=== PATIENT | female | born 1955 | race Caucasian/White ===

== ENCOUNTER → 2016-09-29 | Day surgery (SDC) | payer OTHER ==
[~2016-09-29] MED LIST: ALBUTEROL17 GM INH; ANEXSIA 7.5/3251 TA1 PO; ASPIRIN EC81 M1 PO; FLEXERIL10 M1 PO; FLEXERIL10 MG PO; HYDROCODONE/APA1 T16 PO; LISINOPRIL20 MG PO; LOPID600 MG PO; OMEPRAZOLE40 M1 PO; PRAVASTATIN SOD40 MG PO; PRILOSEC PO; PRILOSEC20 MG PO; RANITIDINE HCL150 M1 PO; SPIRIVA18 MCG INH; TYLENOL #3 PO; VOLTAREN75 MG PO
--- NOTE | ~2016-09-29 | OR ---
Unit #: [id number] #: [id number] Patient: VELMA ESPARZA [id number] [address] [place], [place] [address] [id number] O MR#: [id number] NAME: VELMA ESPARZA. ROOM: Date of Procedure: 09/29/2016 Admission Date: 09/29/2016 Surgeon: Pedro Khan M.D. : 1955 Attending Physician: Pedro Khan M.D. Primary Care Physician: Link Hubbard Jr., A.P.R.N. OPERATIVE REPORT JOB NOTE: VERIFY DATE OF PROCEDURE PERFORMED Esophagogastroduodenoscopy with biopsy and colonoscopy with multiple snare polypectomies. INDICATIONS FOR PROCEDURE The patient with history of adenomatous polyps, also with significant dysphagia worsening symptoms. MEDICATIONS Monitored anesthesia. POSTOPERATIVE FINDINGS 1. Mild esophagitis. No clear strictures or rings were seen. 2. Mild diffuse gastritis. Biopsies taken. 3. Normal duodenum and distal duodenum. 4. Polyps x2, cecum 6 to 8 mm snared and sent for histopathology, 4 polyps in the transverse colon, 4 to 6 mm each, snared, and sent for histopathology. Prep was poor. Some areas were not well visualized. 5. Internal hemorrhoids. PLAN 1. Given the multiplicity of polyps, I would recommend a repeat colonoscopy in 3 years. PPI therapy. 2. Avoid NSAIDs. DESCRIPTION OF PROCEDURE The patient was explained of the procedure, risks, and benefits along with the risks and benefits of anesthesia. She was brought to the endoscopy room. Propofol anesthesia was given. Bite block was placed. The scope was passed down the mouth into the esophagus, stomach, duodenum, and distal duodenum. Biopsies were taken. Biopsies taken. Gently, the scope was pulled out. She tolerated it well. At this time, she was turned around and repositioned for colonoscopy. Rectal exam was done, which was normal. Colonoscope was lubricated, passed up the rectum, advanced under direct vision all the way to the cecum. Cecum was identified by ileocecal valve and appendiceal orifice. Extensive lavaging needed to be done. Multiple polyps were seen as described. I retroflexed in the rectum, small hemorrhoids seen. Gently, the scope was pulled out. She tolerated it well. Unit #: [id number] #: [id number] Patient: VELMA ESPARZA Dictated by... Douglas Flaherty/madhavi TD: 09/29/2016 21:44 JOB #: [id number] OPERATIVE REPORT X Pedro Khan MD PROCEDURE OPERATIVE NOTE
== END | disposition home or self-care (01) ==
LOC: COPS 11:35
DX: K21.0 Gastro-esophageal reflux disease with esophagitis (principal); K29.50 Unspecified chronic gastritis without bleeding; D12.0 Benign neoplasm of cecum; D12.3 Benign neoplasm of transverse colon; K64.8 Other hemorrhoids; R13.10 Dysphagia, unspecified; Z86.010 Personal history of colon polyps; K59.00 Constipation, unspecified; R73.03 Prediabetes; I10 Essential (primary) hypertension; E78.5 Hyperlipidemia, unspecified; J44.9 Chronic obstructive pulmonary disease, unspecified; J45.909 Unspecified asthma, uncomplicated; Z88.2 Allergy status to sulfonamides; Z79.82 Long term (current) use of aspirin
CPT/HCPCS: 82947; 88305; 88312; J2250

== ENCOUNTER 2016-11-14 20:48 | Emergency (ER) | payer OTHER | END 2016-11-15 01:00 | disposition home or self-care (01) | LOC: CED 20:48 | DX: Z53.21 Procedure and treatment not carried out due to patient leaving prior to being seen by health care provider (principal) ==

== ENCOUNTER 2017-01-25 19:25 | Emergency (ER) | payer OTHER ==
--- NOTE | ~2017-01-25 | US67 ---
[facility] A Service of [facility] RADIOLOGY TEXT RESULTS PATIENT: VELMA ESPARZA LOCATION: [facility] : 53 UNIT #: [id number] AGE: [address]: Keyona Morton MD SEX: F ORDER DR: [id number] [facility] [address] [place], [place] [address] [id number] E MR#: [id number] Acc #: [id number] NAME: VELMA ESPARZA. : 1955 SEX: F STUDY DATE/TIME: 01/25/2017 21:13 UNIT: ÁLVARO ROOM: STUDY DESCRIPTION: Gallbladder Attending Physician: Keyona Morton M.D. Ordering Physician: Keyona Morton M.D. Primary Care Physician: Link Hubbard Jr., A.P.R.N. MEDICAL IMAGING REPORT This report is preliminary unless electronic signature is present EXAM Gallbladder ultrasound, 01/25/2017. INDICATIONS Abdominal pain for a week. TECHNIQUE Sonographic imaging right upper quadrant was performed. COMPARISON No comparisons. FINDINGS Visualized pancreas unremarkable. Survey images of the liver are negative. The liver measures approximately 15.2 cm long axis. The right kidney is incompletely visualized but to the extent seen appears unremarkable. It measures about 9.7 cm long axis. The gallbladder is incompletely distended but otherwise unremarkable. No sonographic Haro's sign described. Extrahepatic common bile duct measures approximately 4 mm. IMPRESSION 1. Negative right upper quadrant ultrasound. Dictated by... Liborio Hull M.D. THIS IS AN ELECTRONICALLY VERIFIED REPORT Liborio Hull M.D. at 01/25/2017 11:51 PM Baldev TD: 01/25/2017 23:36 JOB #: [id number] [facility] A Service of [facility] RADIOLOGY TEXT RESULTS PATIENT: VELMA ESPARZA LOCATION: [facility] : 53 UNIT #: [id number] AGE: [address]: Keyona Morton MD SEX: F ORDER DR: MEDICAL IMAGING REPORT Page 1 of 1 COPY
--- NOTE | ~2017-01-25 | CT4 ---
[facility] A Service of [facility] RADIOLOGY TEXT RESULTS PATIENT: VELMA ESPARZA LOCATION: [facility] : 53 UNIT #: [id number] AGE: [address]: Keyona Morton MD SEX: F ORDER DR: [id number] [facility] [address] [place], [place] [address] [id number] E MR#: [id number] Acc #: [id number] NAME: VELMA ESPARZA. : 1955 SEX: F STUDY DATE/TIME: 01/25/2017 22:59 UNIT: ÁLVARO ROOM: STUDY DESCRIPTION: CT Abd and Pelv Wo Cont Attending Physician: Keyona Morton M.D. Ordering Physician: Keyona Morton M.D. Primary Care Physician: Link Hubbard Jr., A.P.R.N. MEDICAL IMAGING REPORT This report is preliminary unless electronic signature is present EXAM CT abdomen and pelvis INDICATIONS Right-sided abdominal pain. Nausea and vomiting for [address] of the abdomen and pelvis without contrast. Coronal and sagittal reconstructions were obtained. This CT exam was performed with one or more of the following radiation dose reduction techniques: Automatic exposure control, adjustment of mA and/or kV according to patient size, and iterative reconstruction. COMPARISON CT abdomen and pelvis 04/02/2015. FINDINGS ABDOMEN: No urinary calculi. No hydronephrosis. Noncontrast evaluation of the remaining solid abdominal organs are within normal limits. The bowel is not dilated. The gallbladder is not distended. The appendix is not clearly identified. Patient reports prior appendectomy. The abdominal aorta is normal in caliber. PELVIS: Bladder is unremarkable. The uterus and ovaries are within normal limits. No enlarged pelvic or inguinal lymph nodes. No acute osseous abnormalities. IMPRESSION 1. No acute findings in the abdomen or pelvis to account for the [facility] A Service of [facility] RADIOLOGY TEXT RESULTS PATIENT: VELMA ESPARZA LOCATION: [facility] : 53 UNIT #: [id number] AGE: [address]: Keyona Morton MD SEX: F ORDER DR: patient's symptoms. Dictated by... Marty Jin M.D. THIS IS AN ELECTRONICALLY VERIFIED REPORT Marty Jin M.D. at 01/26/2017 4:18 AM RPFacundo/hoa TD: 01/26/2017 04:11 JOB #: [id number] MEDICAL IMAGING REPORT Page 1 of 1 COPY
[2017-01-25 21:10] LABS: BASOPHIL# 0.1 X10e3 (0-0.3); BASOPHIL% 1.1 % (0-2.5); DIFF IND NO; EOSINOPHIL# 0.1 X10e3 (0-0.7); EOSINOPHIL% 0.8 % (0.0-7.0); HEMATOCRIT 39.5 % (35.0-45.0); HEMOGLOBIN 13.3 gm/dL (12.0-16.0); LYMPHOCYTE# 5.5 X10e3 (1.0-3.5); LYMPHOCYTE% 42.8 % (17.0-45.0); MEAN CELL VOLUME 92.3 FL (83-96); MEAN CORPUSCULAR HEMOGLOBIN 31.2 PG (28-34); MEAN CORPUSCULAR HGB CONC 33.8 g/dL (30-36); MEAN PLATELET VOLUME 8.5 FL (6.5-11.5); MONOCYTE# 0.7 X10e3 (0-1.0); MONOCYTE% 5.3 % (3.0-12.0); NEUTROPHIL# 6.5 X10e3 (1.5-7.1); PLATELET COUNT 362 X10e3 (140-420); RED BLOOD COUNT 4.28 X10e (3.90-5.30); RED CELL DISTRIBUTION WIDTH 14.6 % (11.0-15.5)
[2017-01-25 21:38] LABS: ALBUMIN SERUM 4.2 g/dL (3.5-5.0); BILIRUBIN, DIRECT 0.1 mg/dL (0.0-0.2); BILIRUBIN,TOTAL 0.1 mg/dL (0.2-2.0); CALCIUM SERUM 9.9 mg/dL (8.4-10.2); GLOM FILT RATE Estimated 60.4 mL/min (>60); POTASSIUM 4.6 mmol/L (3.5-5.1); PROTEIN TOTAL SERUM 7.9 g/dL (6.0-8.3)
[2017-01-25 23:46] LABS: URINE SOURCE CLEAN CATCH
[2017-01-25 23:54] LABS: URINE APPEARANCE CLEAR; URINE BILIRUBIN NEG (NEG); URINE BLOOD NEG (NEG); URINE COLOR YELLOW; URINE GLUCOSE NEG (NEG); URINE KETONE NEG (NEG); URINE LEUKOCYTE ESTERASE 1+ (NEG); URINE NITRATE NEG (NEG); URINE PROTEIN NEG (NEG); URINE UROBILINOGEN 0.2 MG/DL (NEG)
[2017-01-25 23:56] LABS: CULTURE INDICATED? YES; URBCS1 AUWI 0-2 /[HPF] (0-2); URINE BACTERIA AUWI NEG (NEGATIVE); URINE SQUAMOUS EPITHELIAL CELL FEW /[HPF]
== END 2017-01-26 01:15 | disposition home or self-care (01) ==
LOC: CED 19:25
PROVIDERS: Student in an Organized Health Care Education/Training Program
DX: R10.11 Right upper quadrant pain (principal); R19.7 Diarrhea, unspecified; F17.200 Nicotine dependence, unspecified, uncomplicated; Z88.2 Allergy status to sulfonamides; K21.9 Gastro-esophageal reflux disease without esophagitis; I10 Essential (primary) hypertension
CPT/HCPCS: 36415; 74176; 76705; 80048; 80076; 81003; 82150; 83690; 85025; 87086; 96374; 96375; 99284; C9113; J1170; J2270; J2405

== ENCOUNTER → 2017-02-08 | Outpatient (CLI) | payer OTHER ==
--- NOTE | ~2017-02-08 | NM22 ---
[facility] A Service of [facility] RADIOLOGY TEXT RESULTS PATIENT: VELMA ESPARZA LOCATION: [facility] : 53 UNIT #: [id number] AGE: [address]: Link Hubbard Jr ADMITTING INTERVIEWER SEX: F ORDER DR: [id number] [facility] [address] [place], [place] [address] [id number] O MR#: [id number] Acc #: [id number] NAME: VELMA ESPARZA. : 1955 SEX: F STUDY DATE/TIME: 02/08/2017 13:15 UNIT: [facility] ROOM: STUDY DESCRIPTION: JESS Hepatobiliary W GB Pharm Attending Physician: Link Hubbard Jr., A.P.RIzabella Referring Physician: Link Hubbard Jr., A.P.RIzabella Ordering Physician: Link Hubbard Jr., A.P.R.Ryan. Primary Care Physician: Link Hubbard Jr., A.P.RIzabella MEDICAL IMAGING REPORT This report is preliminary unless electronic signature is present EXAM Hepatobiliary scan on 02/08 INDICATIONS Right upper quadrant pain radiating to the back and right shoulder. Nausea, vomiting, bloating and loose stools. Bowel belching. Pain started about 3 weeks ago. TECHNIQUE Imaging was obtained of the abdomen for 60 minutes after the IV administration 6 mCi of Tc-99m - Choletec. COMPARISON STUDIES Gallbladder ultrasound from 01/25/2017. FINDINGS There is prompt uptake by the liver. Gallbladder activity is seen within 15 minutes. There is no evidence of acute cholecystitis. Following the IV administration of 1.4 mcg of Kinevac, gallbladder ejection fraction is normal of 96%. IMPRESSION Normal hepatobiliary scan. Normal gallbladder ejection fraction of 96% after Kinevac stimulation. Dictated by... Jagjit Lloyd Jr., M.D. THIS IS AN ELECTRONICALLY VERIFIED REPORT Jagjit Lloyd Jr., M.D. at 02/09/2017 7:35 PM RLK/pcl [facility] A Service of [facility] RADIOLOGY TEXT RESULTS PATIENT: VELMA ESPARZA LOCATION: [facility] : 53 UNIT #: [id number] AGE: [address]: Link Hubbard Jr ADMITTING INTERVIEWER SEX: F ORDER DR: TD: 02/08/2017 22:17 JOB #: [id number] MEDICAL IMAGING REPORT Page 1 of 1 COPY
== END | disposition home or self-care (01) ==
LOC: CNUC 09:30
DX: R10.9 Unspecified abdominal pain (principal)
CPT/HCPCS: 78227; A9537; J2805